=== PATIENT | male | born 1975 | race Caucasian/White ===

== ENCOUNTER 2020-04-08 14:31 | Inpatient (IN) | payer MEDICAID ==
[~2020-04-08] VITALS: Ht 185 cm; Wt 226.7 kg
[~2020-04-08 14:31] MED LIST: OXYC-12 PO
[2020-04-08] MEDS ORDERED: ALPRAZolam 0.5 MG (XANAX) TAB PO PRN (15:15)
[2020-04-08] MEDS ORDERED: MELATONIN 3 MG TABLET PO PRN (15:15)
[2020-04-08] MEDS ORDERED: ANTACID SUSP 30 ML UDC (MYLANTA) PO PRN (15:15)
[2020-04-08] MEDS ORDERED: polyethylene glycoL POWDER 17 GM (MIRALAX) PACK PO PRN (15:15)
[2020-04-08] MEDS ORDERED: ZOLPIDEM 5 MG (AMBIEN) TAB PO PRN (15:15)
[2020-04-08] MEDS ORDERED: ONDANSETRON 4 MG/2 ML (SDV) Z0FRAN IV PRN (15:15)
[2020-04-08] MEDS ORDERED: hydrALAZINE (APRESOLINE) 25 MG TAB PO PRN (15:15)
[2020-04-08] MEDS ORDERED: BISACODYL 10 MG SUPP (DULCOLAX) PR PRN (15:15)
[2020-04-08] MEDS ORDERED: ONDANSETRON 4 MG (ZOFRAN) ORAL DISSOLVE TAB PO PRN (15:15)
[2020-04-08] MEDS ORDERED: ACETAMINOPHEN 325 MG TABLET PO PRN (15:15)
[2020-04-08] MEDS ORDERED: diphenhydrAMINE 25 MG TAB (BENADRYL) PO PRN (15:15)
[2020-04-08 16:15] VITALS: BP 135/69
[2020-04-08] MEDS: inSUlin ASPART (NovoLOG) 1 UNIT/0.01 ML (CHARGE PER UNIT) SC SCH ×2 (17:35→20:43)
[2020-04-08] MEDS: ENOXAPARIN 60 MG/0.6 ML (LOVENOX) SYR SC SCH (17:48)
[2020-04-08 20:21] VITALS: BP 124/74
[2020-04-08 21:19] VITALS: BP 124/74
--- NOTE | 2020-04-08 21:38 | NUR ---
PT STATES HE IS SOB. PT IS DIAPHORETIC. BS 147. PT IS ON 5 LITER NC. O2SAT IS FROM 88 TO 90 PERCENT. VITAL SIGNS OUT SIDE OF OXYGEN ARE STABLE. RT CALLED. PT IS PLACED ON VAPOTHERM. OXYGEN IS NOT 94%. PT STATES HE IS FEELING A LITTLE BETTER. WILL CONTINUE TO MONITOR.
[2020-04-08] MEDS: DOCUSATE SODIUM 100 MG (COLACE) CAP PO SCH (21:52)
[2020-04-08] MEDS: SENNOSIDES 8.6 MG (SENOKOT) TAB PO SCH (21:53)
[2020-04-09] VITALS (21 sets, daily range): BP systolic 121–173; BP diastolic 63–95
--- NOTE | 2020-04-09 02:20 | NUR ---
PT IS RESTING. VITAL SIGNS ARE STABLE.
[2020-04-09] MEDS: RT-ALBUTEROL INHALER HFA (VENTOLIN HFA) 18 GM IH SCH ×6 (02:23→18:44)
[2020-04-09] MEDS: ENOXAPARIN 60 MG/0.6 ML (LOVENOX) SYR SC SCH ×2 (04:15→16:16)
--- NOTE | 2020-04-09 04:15 | NUR ---
PT OXYGEN SAT IS 87 TO 89 PERCENT. OTHER VITAL SIGNS ARE STABLE. PT INFORMED THIS RN WHILE HE WAS IN [facility] HE HAD TO WEAR A BIPAP BECAUSE OF SLEEP APNEA. HE INSTRUCTED TO GET A SLEEP STUDY WHEN HOME. HOWEVER WAS UNABLE TO BECAUSE OF COVID. RT CALLED FOR LOW SAT. RT IN ROOM AND ADJUSTED VAPOTHERM. SETTING FOR VAPOTHERM ARE NOW AT MAX AND PT IS OXYGEN SAT IS 89 TO 90. BIPAP IS DISCUSSED WITH PT. PT AGREES TO WEAR BIPAP. PT PLACED ON BIPAP. PT OXYGEN ON BIPAP IS 93 PERCENT. PT IS NOW RESTING COMFORTABLY. WILL CONTINUE TO MONITOR.
[2020-04-09] MEDS: dexAMETHasone 6 MG TAB (DECADRON) PO SCH (04:54)
[2020-04-09] MEDS: inSUlin ASPART (NovoLOG) 1 UNIT/0.01 ML (CHARGE PER UNIT) SC SCH ×4 (05:34→20:18)
[2020-04-09 06:27] LABS: BASOPHILS % (AUTO) 0 % (0-10); EOSINOPHILS % (AUTO) 0 % (0-10); HEMATOCRIT 35 % (40-54); HEMOGLOBIN 11.1 g/dL (13.3-17.7); LYMPHOCYTES # (AUTO) 0.5 10^3/uL (1.0-4.0); LYMPHOCYTES % (AUTO) 24 % (12-44); MEAN CORPUSCULAR HEMOGLOBIN 27 pg (25-34); MEAN CORPUSCULAR HGB CONC 31 g/dL (32-36); MEAN CORPUSCULAR VOLUME 86 fL (80-99); MEAN PLATELET VOLUME 10.7 fL (9.0-12.2); MONOCYTES # (AUTO) 0.1 10^3/uL (0.0-1.0); MONOCYTES % (AUTO) 4 % (0-12); NEUTROPHILS # (AUTO) 1.4 10^3/uL (1.8-7.8); NEUTROPHILS % (AUTO) 72 % (42-75); PLATELET COUNT 201 10^3/uL (130-400)
[2020-04-09 06:38] LABS: ALBUMIN 3.3 GM/DL (3.2-4.5)
[2020-04-09 06:39] LABS: CHLORIDE 104 MMOL/L (98-107); POTASSIUM 4.6 MMOL/L (3.6-5.0); SODIUM 139 MMOL/L (135-145)
[2020-04-09 06:40] LABS: CALCIUM 8.9 MG/DL (8.5-10.1)
[2020-04-09 06:41] LABS: GLUCOSE 147 MG/DL (70-105); TOTAL PROTEIN 7.8 GM/DL (6.4-8.2)
[2020-04-09 06:42] LABS: CARBON DIOXIDE 26 MMOL/L (21-32)
[2020-04-09 06:43] LABS: BILIRUBIN,TOTAL 0.4 MG/DL (0.1-1.0)
[2020-04-09 06:44] LABS: ALKALINE PHOSPHATASE 106 U/L (40-136)
[2020-04-09 06:45] LABS: CREATININE SERUM 0.72 MG/DL (0.60-1.30); GFR ESTIMATED > 60
[2020-04-09 06:46] LABS: BUN/CREATININE RATIO 15
[2020-04-09 06:48] LABS: ALANINE AMINOTRANSFERASE 76 U/L (0-55)
--- NOTE | 2020-04-09 08:50 | NUR ---
Spoke with Cat RN and gave report for ICU transfer at this time. supervisor cutting and sewing room Donnie has been contacted for assistance getting patient up to ICU. Donnie states he will send up maintenance to disassemble the bariatric bed and take it upstairs.
--- NOTE | 2020-04-09 09:19 | Diagnostic Imaging Report ---
INDICATION: Worsening hypoxia. TIME OF EXAM: 9:05 AM. COMPARISON: Correlation is made with the prior chest from 01/27/2012. FINDINGS: The heart is enlarged. There are some patchy infiltrates in the right upper and right lower lobes, suggestive of pneumonia. The left lung is fairly clear. No effusion or pneumothorax is detected. IMPRESSION: Patchy right-sided pneumonia. Dictated by: Dictated on workstation # [id number]
--- NOTE | 2020-04-09 09:21 | NUR ---
PT TRANSFERRED TO [facility] VIA CHAIR W/ NURSING STAFF/RT AND PERSONAL BELONGINGS. RECEIVED REPORT FROM SHANTI ROCHA. PT PLACED ON MONITORS, VSS ON VAPOTHERM (SEE VS INTERVENTION FOR DETAILS). PT A&O, NO C/O AT THIS TIME. WILL CONT TO MONITOR.
--- NOTE | 2020-04-09 09:33 | NUR ---
Patient transfer up to ICU via bariatric chair with Alma ARRIAGA and Celestina CAMACHO. crop supervisor notified of the need for bariatric bed to be broken down and transferred upstairs to patient now in CU12. Report given to Cat via phone. Patient clothing and belongings transferred with patient to room. Patient tolerated transfer well and is stable at this time.
[2020-04-09] MEDS: SENNOSIDES 8.6 MG (SENOKOT) TAB PO SCH ×2 (09:34→20:18)
[2020-04-09] MEDS: DOCUSATE SODIUM 100 MG (COLACE) CAP PO SCH ×2 (09:34→20:18)
[2020-04-09 10:28] LABS: ABG BASE EXCESS 3.1 MMOL/L (-2.5-2.5); ABG OXYGEN SATURATION 91 % (94-100); ABG PCO2 44 MMHG (35-45); ABG PH 7.41 (7.37-7.43); ABG PO2 58 MMHG (79-93); ABG TCO2 29.2 MMOL/L (21.0-31.0)
[2020-04-09 10:29] LABS: ALLENS TEST POSITIVE; INSPIRED O2 90%; PATIENT TEMP 35.6; VENTILATOR NO
[2020-04-09] MEDS ORDERED: AZITHROMYCIN INJECTION 500 MG in NS (IVPB) 250 ML IV ONE (11:30)
[2020-04-09] MEDS: REMDESIVIR INJ 100 MG in NS (IVPB) 230 ML IV SCH (11:45)
[2020-04-09] MEDS: cefTRIAXone FOR IV USE 1,000 MG in WATER (STERILE) FOR INJECTION 10 ML IV SCH (11:45)
--- NOTE | 2020-04-09 13:38 | Pulmonary Consultation ---
History of Present Illness History of Present Illness Date Seen by Provider: Apr 09, 2020 Time Seen by Provider: 13:34 Date of Admission History of Present Illness 44yo with hx of severe morbid obesity who transferred here from [facility] as direct admit and was found to be COVID positive at [facility]. PT states his symptoms started 2 days ago. He was admitted to 4th floor however continued to have worsening hypoxia and was then transferred to ICU. Allergies and Home Medications Allergies Coded Allergies: No Known Drug Allergies (Unverified , 01/27/12) Home Medications Cholecalciferol (Vitamin D3) 25 Mcg Tablet, 25 MCG PO DAILY, (Reported) Multivitamin 1 Each Tablet, 1 EACH PO DAILY, (Reported) Past Lohjpst-Goowcj-Igvaxn Hx Patient Social History Alcohol Use: Denies Use Recreational Drug Use: No Recent Foreign Travel: No Contact w/Someone Who Travel: No Recent Infectious Disease Expo: No Recent Hopitalizations: No Seasonal Allergies Seasonal Allergies: No Past Medical History Surgeries: No Respiratory: Yes Pneumonia Currently Using CPAP: No Currently Using BIPAP: No Cardiac: No Neurological: No Reproductive Disorders: No Genitourinary: No Gastrointestinal: Yes Abdominal Hernia Musculoskeletal: No Endocrine: No Are Your Blood Sugars Over 250: No HEENT: No Cancer: No Psychosocial: No Blood Disorders: No Sepsis Event Evaluation Height, Weight, BMI Height: '" Weight: lbs. oz. kg; 66.23 BMI Method: Exam Exam Vital Signs Date Time Temp Pulse Resp B/P (MAP) Pulse Ox O2 Delivery O2 Flow Rate FiO2 04/09/20 13:00 72 22 146/74 (98) 96 Vapotherm 40.00 90.00 04/09/20 12:44 70 04/09/20 12:00 75 21 143/85 (104) 89 Vapotherm 40.00 90.00 04/09/20 11:57 36.1 04/09/20 11:00 70 22 156/75 (102) 97 Vapotherm 40.00 90.00 04/09/20 10:29 99 Vapotherm 40.00 100 04/09/20 10:00 82 11 160/95 (116) 88 Vapotherm 40.00 90.00 04/09/20 09:37 Vapotherm 40.00 90.00 04/09/20 09:34 84 04/09/20 09:32 36.1 79 12 121/82 (95) 91 Vapotherm 40.00 70.00 04/09/20 09:30 Vapotherm 40.00 65 04/09/20 08:00 NIV CPAP 24.00 75 04/09/20 08:00 36.1 78 24 144/87 (106) 96 Vapotherm 24.00 70.00 04/09/20 07:59 95 Vapotherm 40.00 100 04/09/20 05:05 70 92 100.00 04/09/20 04:58 68 90 60.00 04/09/20 04:30 88 Vapotherm 40.00 100 04/09/20 04:17 87 Vapotherm 35.00 75 04/09/20 03:31 35.5 73 20 155/89 (111) 93 Vapotherm 24.00 70.00 04/09/20 02:21 97 24.00 75 04/09/20 00:18 36.0 79 20 125/80 (95) 96 Vapotherm 24.00 70.00 04/08/20 21:38 92 Vapotherm 24.00 75 04/08/20 21:19 36.0 84 91 40 04/08/20 20:21 36.0 84 22 124/74 (91) 91 Nasal Cannula 04/08/20 20:00 92 Vapotherm 24.00 75 04/08/20 16:15 36.8 81 16 135/69 91 Nasal Cannula 5.00 04/08/20 16:15 Nasal Cannula 5.00 I & O 04/09/20 07:00 Intake Total 1080 ml Balance 1080 ml Height & Weight Height: '" Weight: lbs. oz. kg; 66.23 BMI Method: Capillary Refill: Less Than 3 Seconds Results Lab Laboratory Tests 04/09/20 06:06 Assessment/Plan Assessment/Plan Acute respiratory failure with ARDS secondasry to COVID -BiPAP PRN and HS COVID-19 pneumonia with severe hypoxia -Remdesivir - CVP -Decadron 6mg daily Anemia -Monitor Severe Morbid obesity HTN -Monitor GI/DVT ppx SILVIA BARCLAY DO Apr 09, 2020 13:38
[2020-04-09] MEDS ORDERED: REMDESIVIR INJ 200 MG in NS (IVPB) 210 ML IV NR (13:45)
[2020-04-09 14:03] LABS: BILIRUBIN,URINE NEGATIVE (NEGATIVE); CLARITY,URINE CLEAR; COLOR,URINE ORANGE; GLUCOSE, URINE (UA) NEGATIVE (NEGATIVE); KETONES,URINE NEGATIVE (NEGATIVE); LEUKOCYTE ESTERASE ,URINE NEGATIVE (NEGATIVE); NITRITE,URINE NEGATIVE (NEGATIVE); PROTEIN,URINE TRACE (NEGATIVE)
[2020-04-09 14:18] LABS: BACTERIA,URINE TRACE /HPF; WBC,URINE 0-2 /HPF
[2020-04-09] MEDS ORDERED: CHOL10002 PO (15:10)
[2020-04-09] MEDS ORDERED: MULT-974 PO (15:10)
--- NOTE | 2020-04-09 15:10 | NUR ---
I SPOKE WITH THE PATIENT'S ON THE PHONE AND WENT THROUGH THE EXTERNAL MED HISTORY TO COMPLETE THIS MED REC. PT'S STATES THAT HE ISN'T TAKING ANY PRESCRIPTION MEDS AT THIS TIME. OTC: VITAMIN D MULTI-VITAMIN
[2020-04-09] MEDS ORDERED: NS IV 500 ML 500 ML ONE (15:49)
--- NOTE | 2020-04-09 16:20 | NUR ---
PT RESTING IN BED W/ EYES CLOSED. PT EASILY AWAKENS TO NAME. O2 SATS IN MID 80S WHILE ON VAPOTHERM 40L 100%. PT PLACED ON BIPAP AT PREVIOUSLY WORN SETTINGS OF 18/12 85%, SATS INCREASED TO MID 90S.
[2020-04-10] VITALS (24 sets, daily range): BP systolic 115–182; BP diastolic 40–107
[2020-04-10 00:50] LABS: BASOPHILS % (AUTO) 0 % (0-10); EOSINOPHILS % (AUTO) 0 % (0-10); HEMATOCRIT 33 % (40-54); HEMOGLOBIN 10.4 g/dL (13.3-17.7); LYMPHOCYTES # (AUTO) 0.6 10^3/uL (1.0-4.0); LYMPHOCYTES % (AUTO) 17 % (12-44); MEAN CORPUSCULAR HEMOGLOBIN 27 pg (25-34); MEAN CORPUSCULAR HGB CONC 31 g/dL (32-36); MEAN CORPUSCULAR VOLUME 87 fL (80-99); MEAN PLATELET VOLUME 10.9 fL (9.0-12.2); MONOCYTES # (AUTO) 0.2 10^3/uL (0.0-1.0); MONOCYTES % (AUTO) 5 % (0-12); NEUTROPHILS # (AUTO) 2.9 10^3/uL (1.8-7.8); NEUTROPHILS % (AUTO) 79 % (42-75); PLATELET COUNT 199 10^3/uL (130-400); WHITE BLOOD COUNT 3.7 10^3/uL (4.3-11.0)
[2020-04-10 00:52] LABS: CHLORIDE 104 MMOL/L (98-107)
[2020-04-10 00:53] LABS: POTASSIUM 4.4 MMOL/L (3.6-5.0); SODIUM 141 MMOL/L (135-145)
[2020-04-10 00:54] LABS: CALCIUM 8.2 MG/DL (8.5-10.1); GLUCOSE 150 MG/DL (70-105)
[2020-04-10 00:56] LABS: CARBON DIOXIDE 27 MMOL/L (21-32)
[2020-04-10 00:58] LABS: CREATININE SERUM 0.72 MG/DL (0.60-1.30); GFR ESTIMATED > 60; PHOSPHORUS 3.3 MG/DL (2.3-4.7)
[2020-04-10 00:59] LABS: BUN/CREATININE RATIO 17
[2020-04-10 01:01] LABS: MAGNESIUM 2.3 MG/DL (1.6-2.4)
[2020-04-10] MEDS: RT-ALBUTEROL INHALER HFA (VENTOLIN HFA) 18 GM IH SCH ×6 (01:58→21:57)
[2020-04-10] MEDS: POTASSIUM CL 10MEQ/50ML IVPB 50 ML IV SCH (03:36)
[2020-04-10] MEDS: KCL 20 MEQ TAB (K-DUR) PO SCH (03:36)
[2020-04-10] MEDS: MAGNESIUM 1 GM/100 ML IVPB 100 ML IV SCH (03:36)
[2020-04-10 04:07] LABS: ABG BASE EXCESS 6.7 MMOL/L (-2.5-2.5); ABG OXYGEN SATURATION 96 % (94-100); ABG PCO2 50 MMHG (35-45); ABG PH 7.41 (7.37-7.43); ABG PO2 81 MMHG (79-93); ABG TCO2 32.9 MMOL/L (21.0-31.0)
[2020-04-10 04:13] LABS: ALLENS TEST YES-POS; INSPIRED O2 75%; PATIENT TEMP 36.6; VENTILATOR NO
--- NOTE | 2020-04-10 05:24 | NUR ---
SPOKE WITH . PASSWORD PROVIDED. UPDATE GIVEN.
[2020-04-10] MEDS: inSUlin ASPART (NovoLOG) 1 UNIT/0.01 ML (CHARGE PER UNIT) SC SCH ×4 (05:28→20:28)
[2020-04-10] MEDS: ENOXAPARIN 60 MG/0.6 ML (LOVENOX) SYR SC SCH ×2 (05:58→17:05)
[2020-04-10] MEDS: dexAMETHasone 6 MG TAB (DECADRON) PO SCH (05:58)
[2020-04-10] MEDS ORDERED: METOCLOPRAMIDE INJ 10 MG/2 ML (REGLAN) ONE (08:14)
[2020-04-10] MEDS: PANTOPRAZOLE 40 MG (PROTONIX) VIAL IV SCH (08:38)
[2020-04-10] MEDS: DOCUSATE SODIUM 100 MG (COLACE) CAP PO SCH ×2 (08:57→20:28)
[2020-04-10] MEDS: SENNOSIDES 8.6 MG (SENOKOT) TAB PO SCH ×2 (08:58→20:28)
[2020-04-10] MEDS ORDERED: AZITHROMYCIN INJECTION 250 MG in NS (IVPB) 250 ML IV SCH (09:00)
[2020-04-10] MEDS: cefTRIAXone FOR IV USE 1,000 MG in WATER (STERILE) FOR INJECTION 10 ML IV SCH (11:42)
[2020-04-10] MEDS: REMDESIVIR INJ 100 MG in NS (IVPB) 230 ML IV SCH (11:43)
[2020-04-10] MEDS ORDERED: morphine INJ 4 MG/ML 1 ML (VIAL/SYRINGE) IVP PRN (11:45)
[2020-04-10] MEDS ORDERED: LORazepam INJ 2 MG/ML (ATIVAN) VIAL IVP PRN (11:45)
[2020-04-10] MEDS ORDERED: LORazepam INJ 2 MG/ML (ATIVAN) VIAL ONE (11:48)
--- NOTE | 2020-04-10 12:02 | NUR ---
DR BARCLAY IN ROOM TO SEE PT NEW ORDERS RECEIVED SEE ORDER HX. ATIVAN 0.5MG IV GIVEN PER NEW VERBAL ORDER.
--- NOTE | 2020-04-10 13:06 | NUR ---
Referral from pt's RN for emotional support: Pt is Holiness and states he "believes in [place]." He expressed feeling isolated and fearful. States he misses his , who is his primary support. The pt welcomed prayer and was tearful. Offered to contact the pt's , Kwadwo. Left voicemail for return contact.
[2020-04-10] MEDS ORDERED: REMDESIVIR INJ 100 MG in NS (IVPB) 230 ML IV SCH (13:45)
--- NOTE | 2020-04-10 15:19 | NUR ---
During care rounds, it was noted avg PO intake 38% x1d, and pt has been refusing meals. Would recommend adding Ensure Enlive to meals TID, for increased kcal intake. Provides 350 kcal and 20 g Pro per serving. Will continue to follow and reassess as pt needs, intake, and status change. Marleny Horner MS RD LD [phone] (cell)
[2020-04-11] VITALS (24 sets, daily range): BP systolic 127–188; BP diastolic 74–104
[2020-04-11] MEDS: RT-ALBUTEROL INHALER HFA (VENTOLIN HFA) 18 GM IH SCH ×5 (02:37→19:07)
[2020-04-11 03:55] LABS: BASOPHILS % (AUTO) 0 % (0-10); EOSINOPHILS % (AUTO) 0 % (0-10); HEMATOCRIT 35 % (40-54); HEMOGLOBIN 10.8 g/dL (13.3-17.7); LYMPHOCYTES # (AUTO) 0.9 10^3/uL (1.0-4.0); LYMPHOCYTES % (AUTO) 14 % (12-44); MEAN CORPUSCULAR HEMOGLOBIN 27 pg (25-34); MEAN CORPUSCULAR HGB CONC 31 g/dL (32-36); MEAN CORPUSCULAR VOLUME 87 fL (80-99); MEAN PLATELET VOLUME 10.8 fL (9.0-12.2); MONOCYTES # (AUTO) 0.4 10^3/uL (0.0-1.0); MONOCYTES % (AUTO) 7 % (0-12); NEUTROPHILS # (AUTO) 4.9 10^3/uL (1.8-7.8); NEUTROPHILS % (AUTO) 79 % (42-75); PLATELET COUNT 235 10^3/uL (130-400); WHITE BLOOD COUNT 6.2 10^3/uL (4.3-11.0)
[2020-04-11 04:12] LABS: CHLORIDE 104 MMOL/L (98-107); POTASSIUM 4.2 MMOL/L (3.6-5.0); SODIUM 142 MMOL/L (135-145)
[2020-04-11 04:13] LABS: CALCIUM 8.2 MG/DL (8.5-10.1)
[2020-04-11 04:14] LABS: GLUCOSE 122 MG/DL (70-105)
[2020-04-11 04:15] LABS: CARBON DIOXIDE 28 MMOL/L (21-32)
[2020-04-11 04:18] LABS: CREATININE SERUM 0.75 MG/DL (0.60-1.30); GFR ESTIMATED > 60; PHOSPHORUS 3.5 MG/DL (2.3-4.7)
[2020-04-11 04:19] LABS: BUN/CREATININE RATIO 20
[2020-04-11 04:21] LABS: MAGNESIUM 2.1 MG/DL (1.6-2.4)
[2020-04-11] MEDS: POTASSIUM CL 10MEQ/50ML IVPB 50 ML IV SCH (04:23)
[2020-04-11] MEDS: inSUlin ASPART (NovoLOG) 1 UNIT/0.01 ML (CHARGE PER UNIT) SC SCH ×4 (04:24→20:05)
[2020-04-11] MEDS: KCL 20 MEQ TAB (K-DUR) PO SCH (04:24)
[2020-04-11] MEDS: MAGNESIUM 1 GM/100 ML IVPB 100 ML IV SCH (04:24)
--- NOTE | 2020-04-11 05:24 | Pulmonary Progress Note ---
Subjective Date Seen by a Provider: Apr 10, 2020 (Late note. ) Time Seen by a Provider: 05:21 Subjective/Events-last exam Pt is still requiring a lot of oxygen. Sepsis Event Evaluation Height, Weight, BMI Height: '" Weight: lbs. oz. kg; 66.23 BMI Method: Exam Exam Vital Signs Date Time Temp Pulse Resp B/P (MAP) Pulse Ox O2 Delivery O2 Flow Rate FiO2 04/11/20 03:00 60 145/77 (99) 98 NIV Bilevel 55.00 04/11/20 02:37 56 96 55.00 04/11/20 02:00 53 141/75 (97) 95 NIV Bilevel 55.00 04/11/20 01:31 NIV Bilevel 55.00 04/11/20 01:00 54 04/11/20 01:00 54 141/77 (98) 95 NIV Bilevel 65.00 04/11/20 00:15 NIV Bilevel 65.00 04/11/20 00:00 61 132/75 (94) 96 Vapotherm 40.00 95.00 04/10/20 23:50 36.0 Vapotherm 40.00 95.00 04/10/20 23:00 60 142/72 (95) 98 Vapotherm 40.00 95.00 04/10/20 22:00 71 8 132/90 (104) 99 Vapotherm 40.00 95.00 04/10/20 21:57 98 Vapotherm 95.00 40 04/10/20 21:00 69 23 138/82 (100) 92 Vapotherm 40.00 95.00 04/10/20 20:00 71 20 166/86 (112) 95 Vapotherm 40.00 95.00 04/10/20 19:40 92 Vapotherm 40.00 95 04/10/20 19:11 99 Vapotherm 95.00 40 04/10/20 19:00 67 12 147/86 (106) 96 Vapotherm 40.00 95.00 04/10/20 19:00 67 04/10/20 18:00 75 12 156/74 (101) 94 Vapotherm 40.00 95.00 04/10/20 17:00 61 7 143/84 (103) 97 Vapotherm 40.00 95.00 04/10/20 16:00 56 14 165/81 (109) 91 Vapotherm 40.00 95.00 04/10/20 15:27 35.7 04/10/20 15:00 65 14 147/88 (107) 92 Vapotherm 40.00 95.00 04/10/20 14:44 97 Vapotherm 95.00 40 04/10/20 14:00 88 24 153/85 (107) 99 Vapotherm 40.00 90.00 04/10/20 13:00 61 24 138/62 (87) 94 Vapotherm 40.00 90.00 04/10/20 12:35 36.7 04/10/20 12:21 75 04/10/20 12:02 36.6 04/10/20 12:00 64 16 126/72 (90) 92 Vapotherm 40.00 90.00 04/10/20 11:00 67 14 146/90 (108) 93 Vapotherm 40.00 90.00 04/10/20 10:35 90 Vapotherm 90.00 40 04/10/20 10:00 58 16 143/79 (100) 95 Vapotherm 40.00 90.00 04/10/20 09:00 55 12 132/78 (96) 95 Vapotherm 40.00 90.00 04/10/20 08:50 93 Vapotherm 40.00 90 04/10/20 08:00 53 12 155/107 (123) 93 Vapotherm 40.00 90.00 04/10/20 07:58 96 Vapotherm 100.00 40 04/10/20 07:18 49 04/10/20 07:00 75 18 182/97 (125) 93 Vapotherm 40.00 90.00 04/10/20 06:07 Vapotherm 40.00 90.00 04/10/20 06:00 76 24 121/75 (90) 91 NIV Bilevel 65.00 04/10/20 05:21 NIV Bilevel 65.00 I & O 04/11/20 07:00 Intake Total 1475 ml Output Total 850 ml Balance 625 ml Height & Weight Height: '" Weight: lbs. oz. kg; 66.23 BMI Method: General Appearance: Anxious, Moderate Distress, Obese HEENT: PERRL/EOMI, Pharynx Normal Neck: Full Range of Motion, Non Tender, Supple Respiratory: Accessory Muscle Use, Crackles, Decreased Breath Sounds Cardiovascular: Regular Rate, Rhythm Capillary Refill: Less Than 3 Seconds Gastrointestinal: normal bowel sounds, non tender, soft Extremity: Normal Capillary Refill Neurologic/Psychiatric: Alert, Oriented x3 Skin: Normal Color, Warm/Dry Lymphatic: No Adenopathy Results Lab Laboratory Tests 04/09/20 06:06 04/10/20 00:30 04/11/20 03:40 Assessment/Plan Assessment/Plan Acute respiratory failure with ARDS Pa02/Fi02 108 secondasry to COVID -BiPAP PRN and HS COVID-19 with severe hypoxia -Remdesivir -S/P CVP -Decadron 6mg daily Anemia -Monitor Anxiety/agitation -Start Ativan 0.5mg IV PRN Severe Morbid obesity GI/DVT ppx SILVIA BARCLAY DO Apr 11, 2020 05:24
--- NOTE | 2020-04-11 05:32 | Pulmonary Progress Note ---
Subjective Time Seen by a Provider: 05:29 Sepsis Event Evaluation Height, Weight, BMI Height: '" Weight: lbs. oz. kg; 66.23 BMI Method: Exam Exam Vital Signs Date Time Temp Pulse Resp B/P (MAP) Pulse Ox O2 Delivery O2 Flow Rate FiO2 04/11/20 03:00 60 145/77 (99) 98 NIV Bilevel 55.00 04/11/20 02:37 56 96 55.00 04/11/20 02:00 53 141/75 (97) 95 NIV Bilevel 55.00 04/11/20 01:31 NIV Bilevel 55.00 04/11/20 01:00 54 04/11/20 01:00 54 141/77 (98) 95 NIV Bilevel 65.00 04/11/20 00:15 NIV Bilevel 65.00 04/11/20 00:00 61 132/75 (94) 96 Vapotherm 40.00 95.00 04/10/20 23:50 36.0 Vapotherm 40.00 95.00 04/10/20 23:00 60 142/72 (95) 98 Vapotherm 40.00 95.00 04/10/20 22:00 71 8 132/90 (104) 99 Vapotherm 40.00 95.00 04/10/20 21:57 98 Vapotherm 95.00 40 04/10/20 21:00 69 23 138/82 (100) 92 Vapotherm 40.00 95.00 04/10/20 20:00 71 20 166/86 (112) 95 Vapotherm 40.00 95.00 04/10/20 19:40 92 Vapotherm 40.00 95 04/10/20 19:11 99 Vapotherm 95.00 40 04/10/20 19:00 67 12 147/86 (106) 96 Vapotherm 40.00 95.00 04/10/20 19:00 67 04/10/20 18:00 75 12 156/74 (101) 94 Vapotherm 40.00 95.00 04/10/20 17:00 61 7 143/84 (103) 97 Vapotherm 40.00 95.00 04/10/20 16:00 56 14 165/81 (109) 91 Vapotherm 40.00 95.00 04/10/20 15:27 35.7 04/10/20 15:00 65 14 147/88 (107) 92 Vapotherm 40.00 95.00 04/10/20 14:44 97 Vapotherm 95.00 40 04/10/20 14:00 88 24 153/85 (107) 99 Vapotherm 40.00 90.00 04/10/20 13:00 61 24 138/62 (87) 94 Vapotherm 40.00 90.00 04/10/20 12:35 36.7 04/10/20 12:21 75 04/10/20 12:02 36.6 04/10/20 12:00 64 16 126/72 (90) 92 Vapotherm 40.00 90.00 04/10/20 11:00 67 14 146/90 (108) 93 Vapotherm 40.00 90.00 04/10/20 10:35 90 Vapotherm 90.00 40 04/10/20 10:00 58 16 143/79 (100) 95 Vapotherm 40.00 90.00 04/10/20 09:00 55 12 132/78 (96) 95 Vapotherm 40.00 90.00 04/10/20 08:50 93 Vapotherm 40.00 90 04/10/20 08:00 53 12 155/107 (123) 93 Vapotherm 40.00 90.00 04/10/20 07:58 96 Vapotherm 100.00 40 04/10/20 07:18 49 04/10/20 07:00 75 18 182/97 (125) 93 Vapotherm 40.00 90.00 04/10/20 06:07 Vapotherm 40.00 90.00 04/10/20 06:00 76 24 121/75 (90) 91 NIV Bilevel 65.00 I & O 04/11/20 07:00 Intake Total 1475 ml Output Total 850 ml Balance 625 ml Height & Weight Height: '" Weight: lbs. oz. kg; 66.23 BMI Method: General Appearance: Anxious, Moderate Distress, Obese HEENT: PERRL/EOMI, Pharynx Normal Neck: Full Range of Motion, Non Tender, Supple Respiratory: Accessory Muscle Use, Crackles, Decreased Breath Sounds Cardiovascular: Regular Rate, Rhythm Capillary Refill: Less Than 3 Seconds Gastrointestinal: normal bowel sounds, non tender, soft Extremity: Normal Capillary Refill Neurologic/Psychiatric: Alert, Oriented x3 Skin: Normal Color, Warm/Dry Lymphatic: No Adenopathy Results Lab Laboratory Tests 04/09/20 06:06 04/10/20 00:30 04/11/20 03:40 Assessment/Plan Assessment/Plan Acute respiratory failure with ARDS Pa02/Fi02 108 secondasry to COVID -BiPAP PRN and HS COVID-19 with severe hypoxia -D/C ABx -- PCT is negative x 2 and no leukocytosis -Remdesivir -S/P CVP -Decadron 6mg daily Anemia -Monitor Anxiety/agitation -Start Ativan 0.5mg IV PRN Severe Morbid obesity GI/DVT ppx SILVIA BARCLAY DO Apr 11, 2020 05:32
[2020-04-11] MEDS: ENOXAPARIN 60 MG/0.6 ML (LOVENOX) SYR SC SCH ×2 (05:39→17:10)
[2020-04-11] MEDS: PANTOPRAZOLE 40 MG (PROTONIX) VIAL IV SCH (09:09)
[2020-04-11] MEDS: dexAMETHasone 6 MG TAB (DECADRON) PO SCH (09:09)
[2020-04-11] MEDS: lisINopril 20 MG (PRINIVIL) TABLET PO SCH (09:09)
[2020-04-11] MEDS: DOCUSATE SODIUM 100 MG (COLACE) CAP PO SCH ×2 (09:10→20:05)
[2020-04-11] MEDS: SENNOSIDES 8.6 MG (SENOKOT) TAB PO SCH ×2 (09:10→20:05)
[2020-04-11] MEDS: REMDESIVIR INJ 100 MG in NS (IVPB) 230 ML IV SCH (11:50)
--- NOTE | 2020-04-11 16:08 | NUR ---
Facilitated FaceTime between the pt and his , teenage son, and child. The pt states he does not recall any of his history or medical information and requested follow up.
[2020-04-12] VITALS (18 sets, daily range): BP systolic 125–179; BP diastolic 67–117
[2020-04-12] MEDS: RT-ALBUTEROL INHALER HFA (VENTOLIN HFA) 18 GM IH SCH ×7 (01:58→23:11)
[2020-04-12 02:50] LABS: BASOPHILS % (AUTO) 0 % (0-10); EOSINOPHILS % (AUTO) 0 % (0-10); HEMATOCRIT 33 % (40-54); LYMPHOCYTES # (AUTO) 0.8 10^3/uL (1.0-4.0); LYMPHOCYTES % (AUTO) 21 % (12-44); MEAN CORPUSCULAR HEMOGLOBIN 27 pg (25-34); MEAN CORPUSCULAR HGB CONC 31 g/dL (32-36); MEAN CORPUSCULAR VOLUME 87 fL (80-99); MEAN PLATELET VOLUME 11.1 fL (9.0-12.2); MONOCYTES # (AUTO) 0.3 10^3/uL (0.0-1.0); MONOCYTES % (AUTO) 9 % (0-12); NEUTROPHILS # (AUTO) 2.5 10^3/uL (1.8-7.8); NEUTROPHILS % (AUTO) 69 % (42-75); PLATELET COUNT 159 10^3/uL (130-400); WHITE BLOOD COUNT 3.6 10^3/uL (4.3-11.0)
[2020-04-12 03:18] LABS: ABG BASE EXCESS 6.3 MMOL/L (-2.5-2.5); ABG OXYGEN SATURATION 92 % (94-100); ABG PCO2 47 MMHG (35-45); ABG PH 7.43 (7.37-7.43); ABG PO2 64 MMHG (79-93); ABG TCO2 32.4 MMOL/L (21.0-31.0)
[2020-04-12 03:20] LABS: BUN/CREATININE RATIO 22; CALCIUM 8.2 MG/DL (8.5-10.1); CARBON DIOXIDE 27 MMOL/L (21-32); CHLORIDE 103 MMOL/L (98-107); CREATININE SERUM 0.73 MG/DL (0.60-1.30); GFR ESTIMATED > 60; GLUCOSE 123 MG/DL (70-105); PHOSPHORUS 3.5 MG/DL (2.3-4.7); SODIUM 140 MMOL/L (135-145)
[2020-04-12 03:28] LABS: VENTILATOR NO
[2020-04-12 03:29] LABS: ALLENS TEST POS; PATIENT TEMP 35.9
[2020-04-12] MEDS: POTASSIUM CL 10MEQ/50ML IVPB 50 ML IV SCH (03:44)
[2020-04-12] MEDS: MAGNESIUM 1 GM/100 ML IVPB 100 ML IV SCH (03:44)
[2020-04-12] MEDS: inSUlin ASPART (NovoLOG) 1 UNIT/0.01 ML (CHARGE PER UNIT) SC SCH (03:44)
[2020-04-12] MEDS: KCL 20 MEQ TAB (K-DUR) PO SCH (03:44)
--- NOTE | 2020-04-12 04:28 | Pulmonary Progress Note ---
Subjective Time Seen by a Provider: 04:26 Sepsis Event Evaluation Height, Weight, BMI Height: '" Weight: lbs. oz. kg; 66.23 BMI Method: Exam Exam Vital Signs Date Time Temp Pulse Resp B/P (MAP) Pulse Ox O2 Delivery O2 Flow Rate FiO2 04/12/20 03:00 52 19 125/70 (88) 97 NIV Bilevel 55.00 04/12/20 02:46 35.9 04/12/20 02:00 53 21 130/67 (88) 93 NIV Bilevel 55.00 04/12/20 01:58 53 92 55.00 04/12/20 01:00 65 15 174/94 (120) 99 NIV Bilevel 55.00 04/12/20 01:00 60 04/12/20 00:01 93 Vapotherm 70.00 40 04/12/20 00:00 66 19 162/103 (122) 98 NIV Bilevel 55.00 04/12/20 00:00 36.4 04/11/20 23:00 44 18 143/82 (102) 97 NIV Bilevel 55.00 04/11/20 22:00 52 22 154/78 (103) 96 NIV Bilevel 55.00 04/11/20 21:00 51 21 139/74 (95) 95 NIV Bilevel 55.00 04/11/20 20:06 NIV Bilevel 55.00 04/11/20 20:00 77 16 144/86 (105) 98 Vapotherm 40.00 70.00 04/11/20 20:00 95 Vapotherm 40.00 75 04/11/20 19:52 36.8 04/11/20 19:08 93 Vapotherm 70.00 40 04/11/20 19:00 77 17 155/91 (112) 93 Vapotherm 40.00 70.00 04/11/20 19:00 81 04/11/20 18:00 73 18 159/84 (109) 93 Vapotherm 40.00 70.00 04/11/20 17:00 128 33 150/94 (112) 91 Vapotherm 40.00 70.00 04/11/20 16:00 67 5 151/82 (105) 94 Vapotherm 40.00 70.00 04/11/20 15:00 75 19 142/77 (98) 93 Vapotherm 40.00 70.00 04/11/20 14:46 93 Vapotherm 70.00 40 04/11/20 14:00 62 9 188/104 (132) 99 Vapotherm 40.00 70.00 04/11/20 13:00 72 28 136/78 (97) 93 Vapotherm 40.00 70.00 04/11/20 12:32 70 04/11/20 12:00 61 151/94 (113) 91 Vapotherm 40.00 70.00 04/11/20 11:00 58 132/75 (94) 95 Vapotherm 40.00 70.00 04/11/20 10:09 97 Vapotherm 70.00 40 04/11/20 10:00 64 141/82 (101) 95 Vapotherm 40.00 70.00 04/11/20 09:00 57 127/80 (96) 98 Vapotherm 40.00 85.00 04/11/20 08:55 96 Vapotherm 40.00 85 04/11/20 08:00 68 140/89 (106) 95 Vapotherm 40.00 85.00 04/11/20 07:00 66 142/80 (100) 98 Vapotherm 40.00 85.00 04/11/20 06:45 81 96 Vapotherm 40.00 85.00 04/11/20 06:39 97 Vapotherm 85.00 40 04/11/20 06:00 65 139/81 (100) 98 Vapotherm 40.00 95.00 04/11/20 05:43 Vapotherm 40.00 95.00 04/11/20 05:00 54 138/84 (102) 95 NIV Bilevel 55.00 I & O 04/12/20 07:00 Intake Total 1120 ml Output Total 2150 ml Balance -1030 ml Height & Weight Height: '" Weight: lbs. oz. kg; 66.23 BMI Method: General Appearance: Anxious, Moderate Distress, Obese HEENT: PERRL/EOMI, Pharynx Normal Neck: Full Range of Motion, Non Tender, Supple Respiratory: Accessory Muscle Use, Crackles, Decreased Breath Sounds Cardiovascular: Regular Rate, Rhythm Capillary Refill: Less Than 3 Seconds Gastrointestinal: normal bowel sounds, non tender, soft Extremity: Normal Capillary Refill Neurologic/Psychiatric: Alert, Oriented x3 Skin: Normal Color, Warm/Dry Lymphatic: No Adenopathy Results Lab Laboratory Tests 04/11/20 03:40 04/12/20 02:30 Assessment/Plan Assessment/Plan Acute respiratory failure with ARDS Pa02/Fi02 108 secondasry to COVID -BiPAP PRN and HS currently requiring 55% COVID-19 with severe hypoxia -D/C ABx -- PCT is negative x 2 and no leukocytosis -Remdesivir -S/P CVP -Decadron 6mg daily -Awake proning Anemia -Monitor Anxiety/agitation -Start Ativan 0.5mg IV PRN Severe Morbid obesity GI/DVT ppx -Lovenox -Protonix SILVIA BARCLAY DO Apr 12, 2020 04:28
[2020-04-12] MEDS: ENOXAPARIN 60 MG/0.6 ML (LOVENOX) SYR SC SCH ×2 (05:35→17:06)
[2020-04-12] MEDS: PANTOPRAZOLE 40 MG (PROTONIX) VIAL IV SCH (08:06)
[2020-04-12] MEDS: dexAMETHasone 6 MG TAB (DECADRON) PO SCH (08:06)
[2020-04-12] MEDS: lisINopril 20 MG (PRINIVIL) TABLET PO SCH (08:07)
[2020-04-12] MEDS: SENNOSIDES 8.6 MG (SENOKOT) TAB PO SCH ×2 (08:07→23:54)
[2020-04-12] MEDS: DOCUSATE SODIUM 100 MG (COLACE) CAP PO SCH ×2 (08:07→23:54)
[2020-04-12] MEDS: REMDESIVIR INJ 100 MG in NS (IVPB) 230 ML IV SCH (11:48)
[2020-04-13] MEDS: RT-ALBUTEROL INHALER HFA (VENTOLIN HFA) 18 GM IH SCH ×7 (02:54→22:57)
[2020-04-13] MEDS: ENOXAPARIN 60 MG/0.6 ML (LOVENOX) SYR SC SCH ×2 (06:08→16:57)
[2020-04-13] MEDS: KCL 20 MEQ TAB (K-DUR) PO SCH (06:27)
[2020-04-13] MEDS: MAGNESIUM 1 GM/100 ML IVPB 100 ML IV SCH (06:27)
[2020-04-13] MEDS: POTASSIUM CL 10MEQ/50ML IVPB 50 ML IV SCH (06:27)
[2020-04-13 06:29] LABS: BASOPHILS % (AUTO) 0 % (0-10); EOSINOPHILS % (AUTO) 0 % (0-10); HEMATOCRIT 34 % (40-54); HEMOGLOBIN 10.5 g/dL (13.3-17.7); LYMPHOCYTES # (AUTO) 1.3 10^3/uL (1.0-4.0); LYMPHOCYTES % (AUTO) 29 % (12-44); MEAN CORPUSCULAR HEMOGLOBIN 27 pg (25-34); MEAN CORPUSCULAR HGB CONC 31 g/dL (32-36); MEAN CORPUSCULAR VOLUME 87 fL (80-99); MEAN PLATELET VOLUME 10.8 fL (9.0-12.2); MONOCYTES # (AUTO) 0.4 10^3/uL (0.0-1.0); MONOCYTES % (AUTO) 8 % (0-12); NEUTROPHILS # (AUTO) 2.8 10^3/uL (1.8-7.8); NEUTROPHILS % (AUTO) 62 % (42-75); PLATELET COUNT 189 10^3/uL (130-400); WHITE BLOOD COUNT 4.5 10^3/uL (4.3-11.0)
[2020-04-13 06:42] LABS: CHLORIDE 103 MMOL/L (98-107); SODIUM 140 MMOL/L (135-145)
[2020-04-13 06:43] LABS: CALCIUM 8.1 MG/DL (8.5-10.1)
[2020-04-13 06:44] LABS: GLUCOSE 108 MG/DL (70-105)
[2020-04-13 06:46] LABS: CARBON DIOXIDE 27 MMOL/L (21-32)
[2020-04-13 06:48] LABS: CREATININE SERUM 0.72 MG/DL (0.60-1.30); GFR ESTIMATED > 60; PHOSPHORUS 3.7 MG/DL (2.3-4.7)
[2020-04-13 06:49] LABS: BUN/CREATININE RATIO 25
[2020-04-13 06:50] LABS: MAGNESIUM 2.1 MG/DL (1.6-2.4)
[2020-04-13 08:06] VITALS: BP 152/94
[2020-04-13] MEDS: dexAMETHasone 6 MG TAB (DECADRON) PO SCH (08:07)
[2020-04-13] MEDS: PANTOPRAZOLE 40 MG (PROTONIX) VIAL IV SCH (08:07)
[2020-04-13] MEDS: lisINopril 20 MG (PRINIVIL) TABLET PO SCH (08:07)
[2020-04-13] MEDS: SENNOSIDES 8.6 MG (SENOKOT) TAB PO SCH ×2 (09:01→19:21)
[2020-04-13] MEDS: DOCUSATE SODIUM 100 MG (COLACE) CAP PO SCH ×2 (09:01→19:21)
--- NOTE | 2020-04-13 11:23 | Physical Therapy Evaluation ---
PT Evaluation-General Medical Diagnosis Admission Date Apr 08, 2020 at 16:20 Medical Diagnosis: Covid 19 Onset Date: Apr 06, 2020 Therapy Diagnosis Therapy Diagnosis: debility Precautions Precautions/Isolations: Airborne Isolation, Fall Prevention Referral Physician: Mahad Reason for Referral: Evaluation/Treatment Medical History Pertinent Medical History: HTN Additional Medical History morbid obesity Current History TFR from [facility] secondary to severe hypoxia from Covid Reviewed History: Yes Social History Home: Single Level Current Living Status: Spouse Prior Prior Level of Function SCALE: Activities may be completed with or without assistive devices. 8-Lbtgdaxift-vtbnyyw completes the activity by him/herself with no assistance fr om a helper. 5-Set-up or Clean-up Assistance-helper sets up or cleans up; patient completes activity. [place] assists only prior to or following the activity. 4-Supervision or Touching Assistance-helper provides verbal cues and/or touching/steadying and/or contact guard assistance as patient completes activity. Assistance may be provided throughout the activity or intermittently. 3-Partial/Moderate Assistance-helper does LESS THAN HALF the effort. [place] lifts, holds or supports trunk or limbs, but provides less than half the effort. 2-Substantial/Maximal Assistance-helper does MORE THAN HALF the effort. [place] lifts or holds trunk or limbs and provides more than half the effort. 1-Evvfgrphf-unheao does ALL the effort. Patient does none of the effort to complete the activity. Or, the assistance of 2 or more helpers is required for the patient to complete the activity. If activity was not attempted, code reason: 7-Patient Refused. 9-Not Applicable-not attempted and the patient did not perform the activity before the current illness, exacerbation or injury. 10-Not Attempted due to Environmental Limitations-(lack of equipment, weather restraints, etc.). 88-Not Attempted due to Medical Conditions or Safety Concerns. Bed Mobility: 6 Transfers (B,C,W/C): 6 Gait: 6 Stairs: 6 Indoor Mobility (Ambulation): Independent Stairs: Independent Prior Devices Use: None PT Evaluation-Current Subjective Patient agrees to PT. Currently on 6L O2 HF Objective Patient Orientation: Normal For Age Attachments: Oxygen (6L HF), Bullard Catheter ROM/Strength ROM Lower Extremities bilateral LE WFL Strength Lower Extremities 5/5 grossly bilateral LE Integumentary/Posture Integumentary refer to nursing notes Bladder Incontinence: Bullard Cath Posture WFL Neuromuscular (Tone, Coordination, Reflexes) grossly intact Sensory Vision: Functional Hearing: Functional Transfers Sit to Lying (QC): 6 Lying to Sitting/Side of Bed(Q: 6 Sit to Stand (QC): 6 Chair/Avo-oh-Ncuty Xfer(QC): 6 Gait Does the Patient Walk?: Yes Mode of Locomotion: Walk Anticipated Mode of Locomotion: Walk Walk 10 feet (QC): 6 (x 5 sets) Gait Assistive Device: None Comments/Gait Description safe and functional with no deviation Balance Sitting Static: Normal Sitting Dynamic: Normal Standing Static: Normal Standing Dynamic: Normal Assessment/Needs 44 y.o. male, is currently at independent PLOF with all gross motor skills and SAO2 is 99% on 6L O2 HF with activity. No skilled PT indicated. Patient instructed to perform ambulation and standing marching PRN to improve lung function. Rehab Potential: Fair PT Plan Treatment/Plan Treatment Plan: Discontinue PT, goals met Treatment Duration: Apr 13, 2020 Frequency: 1 time per week Estimated Hrs Per Day: .25 hour per day Patient and/or Family Agrees t: Yes Discharge Recommendations Therapy Discharge Recommendati: Home & Family Time/GCodes Time In: 1055 Time Out: 1110 Total Billed Treatment Time: 15 Total Billed Treatment 1 visit EVMod 15 min JANAE CERVANTES PT Apr 13, 2020 11:23
--- NOTE | 2020-04-13 11:30 | Occ Therapy Progress Note ---
Therapy Progress Note Pt in room with PT. Pt agrees to OT eval/ treat. Pt is IND in room per pt. Pt's MMT/ ROM WFL (09/26). Pt agrees able to complete shoes (demonstrates), states ability to complete pants (though is educated on breath support due to COVID status and ensuring tasking breath throughout, educated on use of marble installer supervisor to don pants when return home until breath support increases), pt denies further needs. No need for skilled occupational therapy tx at this time. 1, visit (10 minutes) SHELLEY ASCENCIO OTR Apr 13, 2020 11:30
--- NOTE | 2020-04-13 11:51 | Progress Note - Hospitalist ---
Subjective HPI/CC On Admission Date Seen by Provider: Apr 13, 2020 Time Seen by Provider: 10:30 Subjective/Events-last exam Patient is doing well Off Vapotherm now and on hiflo O2 PT worked with him and he is doing well and at his baseline No pain reported BM++ Hospital Course: Bryce Salazar is a 44 year old male with morbid obesity who was a direct admit from [facility] who's positive for COIVD-19. His symptoms onset 11. He was initially admitted to the 4th medical/surgical floor at [facility], but was transferred to ICU for worsening hypoxia. His hospital course has been complicated by acute respiratory failure secondary to COVID-19 and COVID-19 PNA with severe hypoxia. Chest X-ray showed a patchy right sided pneumonia. He was initially placed on vapotherm and as of today has been transitioned to HFNC at 6 L. He received convalescent plasma therayp, decadron, remdesivir, and the IV abx have been dis continued now. He has been doing awake proning and has started working with PT and OT today. Possible candidate for inpatient rehab here at [facility]. Review of Systems General: Fatigue, Malaise Pulmonary: Dyspnea Neurological: Weakness Objective Exam Vital Signs Vital Signs Date Time Temp Pulse Resp B/P (MAP) Pulse Ox O2 Delivery O2 Flow Rate FiO2 04/14/20 02:00 42 20 95 25.00 04/14/20 00:06 NIV Bilevel 04/13/20 23:44 119/99 (106) 04/13/20 19:15 36.4 04/13/20 08:45 30 Capillary Refill : Less Than 3 Seconds General Appearance: No Apparent Distress, WD/WN, Chronically ill, Obese Respiratory: Chest Non Tender, Lungs Clear, No Accessory Muscle Use, No Respiratory Distress, Decreased Breath Sounds Cardiovascular: Regular Rate, Rhythm, No Edema, No Gallop, No JVD, No Murmur, Normal Peripheral Pulses Neurologic/Psychiatric: Alert, Oriented x3, No Motor/Sensory Deficits, Normal Mood/Affect Skin: Normal Color, Warm/Dry Results/Procedures Lab Laboratory Tests 04/13/20 06:15 04/14/20 03:55 Patient resulted labs reviewed. Assessment/Plan Assessment and Plan Assess & Plan/Chief Complaint Assessment: COVID-19 PNA OHS Plan: PT OT if needed Wean down O2 Assessment per DEO Chandler: Neurologic: Alert and Oriented No sedation Continue PRN lorazepam for anxiety Cardiovascular: BP and HR stable No pressors or inotropes required Respiratory: Acute respiratory failure with ARDS secondary to COVID 19 COVID PNA with severe hypoxia Vapotherm- transition to NC when feasible Continue scheduled albuterol nebs Continue decadron as ordered Encourage cough and deep breath/IS Prone during wakeful hours Received convalescent plasma therapy Gastrointestinal: Protonix for stress ulcer prophylaxis Encourage appropriate po intake given morbid obesity Monitor for GI bleeding Renal/Genitourinary Bullard present Continue close monitoring kidney function Hematologic: lovenox for DVT prophylaxis Monitor for coagulopathy Trend H and H given the anemia Endocrine: Monitor glucoses daily Tight glucose control given decadron administration Infectious Disease: No abx indicated at present time, course completed Reassess daily need Diagnosis/Problems Diagnosis/Problems (1) Acute respiratory failure due to COVID-19 Clinical Quality Measures DVT/VTE Risk/Contraindication: Risk Factor Score Per Nursin RFS Level Per Nursing on Admit: 3=High ALINA ALEJANDRO DO Apr 13, 2020 11:50
[2020-04-13 11:58] VITALS: BP 135/79
--- NOTE | 2020-04-13 12:52 | Progress Note ---
HARMEET MENDOZA MED STUDENT 04/13/20 1252: Progress Note Assessment: Neurologic: Alert and Oriented No sedation Continue PRN lorazepam for anxiety Cardiovascular: BP and HR stable No pressors or inotropes required Respiratory: Acute respiratory failure with ARDS secondary to COVID 19 COVID PNA with severe hypoxia Vapotherm- transition to NC when feasible Continue scheduled albuterol nebs Continue decadron as ordered Encourage cough and deep breath/IS Prone during wakeful hours Received convalescent plasma therapy Gastrointestinal: Protonix for stress ulcer prophylaxis Encourage appropriate po intake given morbid obesity Monitor for GI bleeding Renal/Genitourinary Bullard present Continue close monitoring kidney function Hematologic: lovenox for DVT prophylaxis Monitor for coagulopathy Trend H and H given the anemia Endocrine: Monitor glucoses daily Tight glucose control given decadron administration Infectious Disease: No abx indicated at present time, course completed Reassess daily need Hospital Course: Bryce Salazar is a 44 year old male with morbid obesity who was a direct admit from [facility] who's positive for COIVD-19. His symptoms onset 04-07. He was initially admitted to the 4th medical/surgical floor at [facility], but was transferred to ICU for worsening hypoxia. His hospital course has been complicated by acute respiratory failure secondary to COVID-19 and COVID-19 PNA with severe hypoxia. Chest X-ray showed a patchy right sided pneumonia. He was initially placed on vapotherm and as of today has been transitioned to HFNC at 6 L. He received convalescent plasma therayp, decadron, remdesivir, and the IV abx have been discontinued now. He has been doing awake proning and has started working with PT and OT today. Possible candidate for inpatient rehab here at [facility]. NORA ALEJANDRO DO 04/14/20 0550: Supervisory-Addendum Brief Verification & Attestation Participated in pt care: history, MDM, physical Personally performed: exam, history, MDM, supervision of care Care discussed with: Medical Student Procedures: n/a Results interpretation: Verified all documentation Verification and Attestation of Medical Student E/M Service A medical student performed and documented this service in my presence. I reviewed and verified all information documented by the medical student and made modifications to such information, when appropriate. I personally performed the physical exam and medical decision making. Nora Alejandro, Apr 14, 2020,05:50 HARMEET MENDOZA MED STUDENT Apr 13, 2020 12:52 NORA ALEJANDRO DO Apr 14, 2020 05:50
--- NOTE | 2020-04-13 13:11 | NUR ---
IRF Evaluation Determination: Denied Findings: Chart review complete and it appears patient is independent and at PLOF; therefore, patient does not require inpatient rehabilitation services, at this time. Dr. Tobin notified. Thank you for this referral.
[2020-04-13 15:38] VITALS: BP 138/84
[2020-04-13 20:00] VITALS: BP 117/74
[2020-04-13 20:43] VITALS: BP 117/74
[2020-04-13 23:44] VITALS: BP 119/99
[2020-04-14] MEDS: RT-ALBUTEROL INHALER HFA (VENTOLIN HFA) 18 GM IH SCH ×6 (01:59→22:20)
[2020-04-14 04:25] LABS: BASOPHILS % (AUTO) 0 % (0-10); EOSINOPHILS % (AUTO) 0 % (0-10); HEMATOCRIT 36 % (40-54); HEMOGLOBIN 11.2 g/dL (13.3-17.7); LYMPHOCYTES # (AUTO) 1.2 10^3/uL (1.0-4.0); LYMPHOCYTES % (AUTO) 20 % (12-44); MEAN CORPUSCULAR HEMOGLOBIN 27 pg (25-34); MEAN CORPUSCULAR HGB CONC 31 g/dL (32-36); MEAN CORPUSCULAR VOLUME 86 fL (80-99); MONOCYTES # (AUTO) 0.3 10^3/uL (0.0-1.0); MONOCYTES % (AUTO) 6 % (0-12); NEUTROPHILS # (AUTO) 4.3 10^3/uL (1.8-7.8); NEUTROPHILS % (AUTO) 73 % (42-75); PLATELET COUNT 199 10^3/uL (130-400); WHITE BLOOD COUNT 5.9 10^3/uL (4.3-11.0)
[2020-04-14 04:40] LABS: CHLORIDE 104 MMOL/L (98-107); SODIUM 141 MMOL/L (135-145)
[2020-04-14 04:41] LABS: CALCIUM 8.3 MG/DL (8.5-10.1)
[2020-04-14 04:42] LABS: GLUCOSE 118 MG/DL (70-105)
[2020-04-14 04:43] LABS: CARBON DIOXIDE 26 MMOL/L (21-32)
[2020-04-14 04:45] LABS: PHOSPHORUS 3.9 MG/DL (2.3-4.7)
[2020-04-14 04:46] LABS: GFR ESTIMATED > 60
[2020-04-14 04:47] LABS: BUN/CREATININE RATIO 21
[2020-04-14 04:48] LABS: MAGNESIUM 2.1 MG/DL (1.6-2.4)
[2020-04-14] MEDS: POTASSIUM CL 10MEQ/50ML IVPB 50 ML IV SCH (05:11)
[2020-04-14] MEDS: MAGNESIUM 1 GM/100 ML IVPB 100 ML IV SCH (05:11)
[2020-04-14] MEDS: KCL 20 MEQ TAB (K-DUR) PO SCH (05:11)
[2020-04-14] MEDS: ENOXAPARIN 60 MG/0.6 ML (LOVENOX) SYR SC SCH ×2 (05:59→17:04)
--- NOTE | 2020-04-14 06:53 | Progress Note - Hospitalist ---
Subjective HPI/CC On Admission Date Seen by Provider: Apr 14, 2020 Time Seen by Provider: 11:00 Subjective/Events-last exam Patient much improved Moving to 4h floor O2 weaning biPAP working very well for him and he wants it intermediate No pain reported BM+ Review of Systems General: Fatigue, Malaise Pulmonary: Dyspnea Objective Exam Vital Signs Vital Signs Date Time Temp Pulse Resp B/P (MAP) Pulse Ox O2 Delivery O2 Flow Rate FiO2 04/14/20 16:18 36.3 77 20 112/66 (81) 95 Room Air 04/14/20 12:09 2.00 04/13/20 08:45 30 Capillary Refill : Less Than 3 Seconds General Appearance: No Apparent Distress, WD/WN, Chronically ill, Obese Respiratory: Chest Non Tender, Lungs Clear, Normal Breath Sounds, No Accessory Muscle Use, No Respiratory Distress, Decreased Breath Sounds Cardiovascular: Regular Rate, Rhythm, No Edema, No Gallop, No JVD, No Murmur, Normal Peripheral Pulses Neurologic/Psychiatric: Alert, Oriented x3, No Motor/Sensory Deficits, Normal Mood/Affect Results/Procedures Lab Laboratory Tests 04/14/20 03:55 Patient resulted labs reviewed. Assessment/Plan Assessment and Plan Assess & Plan/Chief Complaint Assessment: COVID-19 PNA OHS Plan: PT OT if needed Wean down O2 04/14/20: Move to 4th floor DC catheter Assessment per TANYA ChandlerII: Neurologic: Alert and Oriented No sedation Continue PRN lorazepam for anxiety Cardiovascular: BP and HR stable No pressors or inotropes required Respiratory: Acute respiratory failure with ARDS secondary to COVID 19 COVID PNA with severe hypoxia Vapotherm- transition to MD when feasible Continue scheduled albuterol nebs Continue decadron as ordered Encourage cough and deep breath/IS Prone during wakeful hours Received convalescent plasma therapy Gastrointestinal: Protonix for stress ulcer prophylaxis Encourage appropriate po intake given morbid obesity Monitor for GI bleeding Renal/Genitourinary Bullard present Continue close monitoring kidney function Hematologic: lovenox for DVT prophylaxis Monitor for coagulopathy Trend H and H given the anemia Endocrine: Monitor glucoses daily Tight glucose control given decadron administration Infectious Disease: No abx indicated at present time, course completed Reassess daily need Diagnosis/Problems Diagnosis/Problems (1) Acute respiratory failure due to COVID-19 Clinical Quality Measures DVT/VTE Risk/Contraindication: Risk Factor Score Per Nursin RFS Level Per Nursing on Admit: 3=High ALINA ALEJANDRO DO Apr 14, 2020 06:53
[2020-04-14] MEDS: lisINopril 20 MG (PRINIVIL) TABLET PO SCH (08:52)
[2020-04-14] MEDS: dexAMETHasone 6 MG TAB (DECADRON) PO SCH (08:52)
[2020-04-14] MEDS: SENNOSIDES 8.6 MG (SENOKOT) TAB PO SCH ×2 (08:52→19:58)
[2020-04-14] MEDS: PANTOPRAZOLE 40 MG (PROTONIX) VIAL IV SCH (08:52)
[2020-04-14] MEDS: DOCUSATE SODIUM 100 MG (COLACE) CAP PO SCH ×2 (08:52→19:57)
[2020-04-14 12:09] VITALS: BP 123/75
--- NOTE | 2020-04-14 14:20 | NUR ---
pt to room 428, with all belongings. report given to Martniez ROCHA.
[2020-04-14 14:50] VITALS: BP 108/59
[2020-04-14 16:18] VITALS: BP 112/66
[2020-04-14 19:41] VITALS: BP 131/60
[2020-04-14 23:20] VITALS: BP 115/56
[2020-04-15] MEDS: RT-ALBUTEROL INHALER HFA (VENTOLIN HFA) 18 GM IH SCH ×5 (02:37→23:21)
[2020-04-15 04:19] VITALS: BP 134/65
[2020-04-15] MEDS: ENOXAPARIN 60 MG/0.6 ML (LOVENOX) SYR SC SCH ×2 (05:14→17:16)
[2020-04-15 05:45] LABS: EOSINOPHILS % (AUTO) 0 % (0-10); MEAN PLATELET VOLUME 12.2 fL (9.0-12.2); MONOCYTES # (AUTO) 0.4 10^3/uL (0.0-1.0)
[2020-04-15 05:47] LABS: BASOPHILS % (AUTO) 0 % (0-10); HEMATOCRIT 36 % (40-54); HEMOGLOBIN 11.3 g/dL (13.3-17.7); LYMPHOCYTES # (AUTO) 1.4 10^3/uL (1.0-4.0); LYMPHOCYTES % (AUTO) 22 % (12-44); MEAN CORPUSCULAR HEMOGLOBIN 27 pg (25-34); MEAN CORPUSCULAR HGB CONC 32 g/dL (32-36); MEAN CORPUSCULAR VOLUME 87 fL (80-99); MONOCYTES % (AUTO) 5 % (0-12); NEUTROPHILS # (AUTO) 4.6 10^3/uL (1.8-7.8); NEUTROPHILS % (AUTO) 71 % (42-75); PLATELET COUNT 103 10^3/uL (130-400); WHITE BLOOD COUNT 6.5 10^3/uL (4.3-11.0)
[2020-04-15 05:52] LABS: ALBUMIN 3.2 GM/DL (3.2-4.5); CHLORIDE 103 MMOL/L (98-107); POTASSIUM 4.2 MMOL/L (3.6-5.0); SODIUM 138 MMOL/L (135-145)
[2020-04-15 05:53] LABS: CALCIUM 8.2 MG/DL (8.5-10.1)
[2020-04-15 05:54] LABS: GLUCOSE 112 MG/DL (70-105); TOTAL PROTEIN 6.8 GM/DL (6.4-8.2)
[2020-04-15 05:55] LABS: CARBON DIOXIDE 25 MMOL/L (21-32)
[2020-04-15 05:56] LABS: BILIRUBIN,TOTAL 0.5 MG/DL (0.1-1.0)
[2020-04-15 05:58] LABS: ALKALINE PHOSPHATASE 85 U/L (40-136); CREATININE SERUM 0.75 MG/DL (0.60-1.30); GFR ESTIMATED > 60
[2020-04-15 05:59] LABS: BUN/CREATININE RATIO 25
[2020-04-15 06:01] LABS: ALANINE AMINOTRANSFERASE 76 U/L (0-55)
[2020-04-15] MEDS: dexAMETHasone 6 MG TAB (DECADRON) PO SCH (06:05)
[2020-04-15 06:34] LABS: SMEAR SCAN COMMENT YES
[2020-04-15] MEDS: SENNOSIDES 8.6 MG (SENOKOT) TAB PO SCH ×2 (07:49→20:07)
[2020-04-15] MEDS: DOCUSATE SODIUM 100 MG (COLACE) CAP PO SCH ×2 (07:49→20:07)
[2020-04-15 08:00] VITALS: BP 130/68
[2020-04-15] MEDS: lisINopril 20 MG (PRINIVIL) TABLET PO SCH (09:02)
[2020-04-15] MEDS: PANTOPRAZOLE 40 MG (PROTONIX) VIAL IV SCH (09:02)
--- NOTE | 2020-04-15 11:21 | Progress Note - Hospitalist ---
Subjective HPI/CC On Admission Date Seen by Provider: Apr 15, 2020 Time Seen by Provider: 12:00 Subjective/Events-last exam Patient much improved Talks about the bipap a lot now No pain reported BM+ Still with chest burning Review of Systems General: Fatigue Pulmonary: Dyspnea Objective Exam Vital Signs Vital Signs Date Time Temp Pulse Resp B/P (MAP) Pulse Ox O2 Delivery O2 Flow Rate FiO2 04/15/20 16:09 36.6 75 20 128/81 (97) 97 Room Air 04/15/20 08:00 04/13/20 08:45 30 Capillary Refill : Less Than 3 Seconds General Appearance: No Apparent Distress, WD/WN, Chronically ill, Obese Respiratory: Chest Non Tender, Lungs Clear, Normal Breath Sounds, No Accessory Muscle Use, No Respiratory Distress Cardiovascular: Regular Rate, Rhythm, No Edema, No Gallop, No JVD, No Murmur, Normal Peripheral Pulses Neurologic/Psychiatric: Alert, Oriented x3, No Motor/Sensory Deficits, Normal Mood/Affect Results/Procedures Lab Laboratory Tests 04/15/20 05:30 Patient resulted labs reviewed. Assessment/Plan Assessment and Plan Assess & Plan/Chief Complaint Assessment: COVID-19 PNA OHS Plan: PT OT if needed Wean down O2 04/14/20: Move to 4th floor DC catheter 04/15/20: Improved status DC soon biPAP set up Assessment per TANYA ChandlerII: Neurologic: Alert and Oriented No sedation Continue PRN lorazepam for anxiety Cardiovascular: BP and HR stable No pressors or inotropes required Respiratory: Acute respiratory failure with ARDS secondary to COVID 19 COVID PNA with severe hypoxia Vapotherm- transition to [place] when feasible Continue scheduled albuterol nebs Continue decadron as ordered Encourage cough and deep breath/IS Prone during wakeful hours Received convalescent plasma therapy Gastrointestinal: Protonix for stress ulcer prophylaxis Encourage appropriate po intake given morbid obesity Monitor for GI bleeding Renal/Genitourinary Bullard present Continue close monitoring kidney function Hematologic: lovenox for DVT prophylaxis Monitor for coagulopathy Trend H and H given the anemia Endocrine: Monitor glucoses daily Tight glucose control given decadron administration Infectious Disease: No abx indicated at present time, course completed Reassess daily need Diagnosis/Problems Diagnosis/Problems (1) Acute respiratory failure due to COVID-19 Clinical Quality Measures DVT/VTE Risk/Contraindication: Risk Factor Score Per Nursin RFS Level Per Nursing on Admit: 3=High ALINA AELJANDRO DO Apr 15, 2020 11:21
[2020-04-15 12:00] VITALS: BP 97/52
[2020-04-15 16:09] VITALS: BP 128/81
[2020-04-15 19:10] VITALS: BP 101/67
[2020-04-16 00:10] VITALS: BP 119/57
[2020-04-16 04:44] VITALS: BP 123/63
[2020-04-16] MEDS: RT-ALBUTEROL INHALER HFA (VENTOLIN HFA) 18 GM IH SCH ×4 (05:20→14:47)
[2020-04-16] MEDS: ENOXAPARIN 60 MG/0.6 ML (LOVENOX) SYR SC SCH (06:09)
[2020-04-16] MEDS: dexAMETHasone 6 MG TAB (DECADRON) PO SCH (06:10)
[2020-04-16 08:00] VITALS: BP 109/67
[2020-04-16] MEDS: PANTOPRAZOLE 40 MG (PROTONIX) VIAL IV SCH (09:37)
[2020-04-16] MEDS: lisINopril 20 MG (PRINIVIL) TABLET PO SCH (09:37)
[2020-04-16] MEDS: DOCUSATE SODIUM 100 MG (COLACE) CAP PO SCH (10:23)
[2020-04-16] MEDS: SENNOSIDES 8.6 MG (SENOKOT) TAB PO SCH (10:23)
[2020-04-16] MEDS ORDERED: ALBU18HF2 IH (11:01)
[2020-04-16] MEDS ORDERED: OXC5T PO (11:01)
[2020-04-16] MEDS ORDERED: LISI-552 PO (11:01)
[2020-04-16] MEDS ORDERED: DEXA6TAB PO (11:01)
--- NOTE | 2020-04-16 11:02 | Discharge Summary ---
Discharge Summary Hospital Course Was the Problem List Reviewed?: Yes Problems/Dx: (1) Acute respiratory failure due to COVID-19 Hospital Course Date of Admission: Apr 08, 2020 at 16:20 Admission Diagnosis : Family Physician/Provider: Adriana Vance MD Date of Discharge: 04/16/20 Discharge Diagnosis: COVID-19 PNA, respiratory failure, DEION Hospital Course: Hospital course: Pt had a lengthy hospital course for nine days after he was transferred from [facility] for Covid-19 respiratory failure. He did not require intubation but did require extensive BiPAP aggressive treatment. He ultimately recovered with Remdesivir and Convalescent plasma along with IV steroids and had a long hospital course. He was ultimately transferred to the floor, felt really good, completed all the Covid-19 treatment protocol and was deemed stable for discharge and did not require oxygen at discharge. He will need a sleep study as an outpatient. Labs and Pending Lab Test: Microbiology 04/09/20 MRSA Screen - Final, Complete MRSA not isolated Home Meds Active Dexamethasone 6 Mg Tablet 6 Mg PO DAILY@0700 Lisinopril 20 Mg Tablet 20 Mg PO DAILY Ventolin Hfa (Albuterol Sulfate) 18 Gm Hfa.aer.ad 0 Gm IH RTQ4HR Reported Vitamin D3 (Cholecalciferol (Vitamin D3)) 25 Mcg Tablet 25 Mcg PO DAILY Multi-Vitamin Daily (Multivitamin) 1 Each Tablet 1 Each PO DAILY Assessment/Pt Instructions PCP Dr Vance 1 week Discharge Planning: <30 minutes discharge planning Discharge Physical Examination Vital Signs Vital Signs Date Time Temp Pulse Resp B/P (MAP) Pulse Ox O2 Delivery O2 Flow Rate FiO2 04/16/20 08:00 35.7 74 20 109/67 (81) 96 Room Air 04/16/20 04:44 25.00 04/13/20 08:45 30 General Appearance: No Apparent Distress, WD/WN, Chronically ill, Obese Respiratory: Chest Non Tender, Lungs Clear, Normal Breath Sounds, No Accessory Muscle Use, No Respiratory Distress Cardiovascular: Regular Rate, Rhythm, No Edema, No Gallop, No JVD, No Murmur, Normal Peripheral Pulses Neurologic/Psychiatric: Alert, Oriented x3, No Motor/Sensory Deficits, Normal Mood/Affect Allergies: Coded Allergies: No Known Drug Allergies (Unverified , 01/27/12) Discharge Summary Date of Admission Apr 08, 2020 at 16:20 Date of Discharge Discharge Date: Apr 16, 2020 Discharge Diagnosis Assessment: COVID-19 PNA OHS Plan: PT OT if needed Wean down O2 04/14/20: Move to 4th floor DC catheter 04/15/20: Improved status DC soon biPAP set up Assessment per TANYA ChandlerII: Neurologic: Alert and Oriented No sedation Continue PRN lorazepam for anxiety Cardiovascular: BP and HR stable No pressors or inotropes required Respiratory: Acute respiratory failure with ARDS secondary to COVID 19 COVID PNA with severe hypoxia Vapotherm- transition to MT when feasible Continue scheduled albuterol nebs Continue decadron as ordered Encourage cough and deep breath/IS Prone during wakeful hours Received convalescent plasma therapy Gastrointestinal: Protonix for stress ulcer prophylaxis Encourage appropriate po intake given morbid obesity Monitor for GI bleeding Renal/Genitourinary Bullard present Continue close monitoring kidney function Hematologic: lovenox for DVT prophylaxis Monitor for coagulopathy Trend H and H given the anemia Endocrine: Monitor glucoses daily Tight glucose control given decadron administration Infectious Disease: No abx indicated at present time, course completed Reassess daily need (1) Acute respiratory failure due to COVID-19 Clinical Quality Measures DVT/VTE Risk/Contraindication: Risk Factor Score Per Nursin RFS Level Per Nursing on Admit: 3=High ALINA ALEJANDRO DO Apr 16, 2020 11:02
--- NOTE | 2020-04-16 11:38 | NUR ---
SPO2 DID NOT DROP BELOW 90% ON ROOM AIR WITH EXERTION. Addendum: 04/16/20 at 1147 by SHERIDAN HIGUERA RT Amended: Links added.
[2020-04-16 12:00] VITALS: BP 146/58
--- NOTE | 2020-04-16 14:23 | NUR ---
"RD ASSESSMENT PMHx: pneumonia; COVID-19; HTN; PT INTERACTION: Note pt is currently in COVID isolation, per chart review. Note all diet information for nutrition follow-up is per AJ Coughlin or per chart review. Madyson states current appetite appears good. Note avg PO intake 100% x3d, per chart review. Madyson states some issues with diarrhea that she is aware of. Note last BM was 04/15, and pt currently on bowel regimen of colace BID, and senna BID, per chart review. ABNORMAL NUTRITION-RELATED LAB VALUES LOW: Ca 8.2; HIGH: BUN 19; glu 112; ALT 76 Est. kcal needs: 5543-7855 kcal | 25-30 kcal/kg IBW, based on IBW of 83.6 kg (184#) Est. Pro needs: 84-100 g Pro | 1.0-1.2 g Pro/kg IBW PES STATEMENT: Given current PO intake, no nutrition diagnosis at this time (NO-1.1). INTERVENTION: Continue with current diet order of Regular diet. Will continue to follow and reassess as pt needs, intake, and status change. Marleny Horner, MS RD LD"
[2020-04-16 16:00] VITALS: BP 146/58
== END 2020-04-16 16:00 | disposition home or self-care (01) | DRG 177 ==
LOC: 4TH 16:20 → ICU 04-09 09:21 → 4TH 04-14 14:18
PROVIDERS: ADMIT Internal Medicine; ATTEND Internal Medicine
PROC: XW033E5 Introduction of Remdesivir Anti-infective into Peripheral Vein, Percutaneous Approach, New Technology Group 5 (ICD-10-PCS; principal; 2020-04-09)
PROC: XW13325 Transfusion of Convalescent Plasma (Nonautologous) into Peripheral Vein, Percutaneous Approach, New Technology Group 5 (ICD-10-PCS; 2020-04-09)
PROC: 5A09557 Assistance with Respiratory Ventilation, Greater than 96 Consecutive Hours, Continuous Positive Airway Pressure (ICD-10-PCS; 2020-04-09)
DX: U07.1 COVID-19 (principal); J80 Acute respiratory distress syndrome; Z68.44 Body mass index [BMI] 60.0-69.9, adult; E66.2 Morbid (severe) obesity with alveolar hypoventilation; D64.9 Anemia, unspecified; F41.9 Anxiety disorder, unspecified
CPT/HCPCS: 36415; 36569; 71045; 76937; 80048; 80053; 81000; 82728; 82805; 82962; 83615; 83735; 83880; 84100; 84145; 84484; 85025; 85379; 86850; 86900; 86901; 87081; 93005; 94640; 94660; 94760; 94761

== ENCOUNTER 2022-10-02 05:39 | Outpatient (CLI) | payer OTHER ==
[~2022-10-02] VITALS: Ht 185.5 cm; Wt 255.5 kg
[~2022-10-02 05:39] MED LIST changes: +ALBU18HF2 IH; +CHOL-34 PO; +DEXA6TAB PO; +LISI20TA26 PO; +MULT-974 PO; +OXC5T PO
[2022-10-02] MEDS ORDERED: IBUP-2185 PO (15:29)
[2022-10-02] MEDS ORDERED: CYAN50009 PO (15:29)
[2022-10-02] MEDS ORDERED: VITA-246 PO (15:29)
[2022-10-02] MEDS ORDERED: ZINC50TA51 PO (15:29)
== END 2022-10-02 15:38 | disposition home or self-care (01) ==
LOC: PREOP 05:39
PROVIDERS: ATTEND Specialist
DX: Z01.818 Encounter for other preprocedural examination (principal); H25.12 Age-related nuclear cataract, left eye

== ENCOUNTER 2022-10-10 07:05 | Day surgery (SDC) | payer MEDICAID, OTHER ==
[~2022-10-10] VITALS: Ht 185.5 cm; Wt 255.5 kg
[~2022-10-10 07:05] MED LIST changes: +CYAN50009 PO; +IBUP-2185 PO; +VITA-246 PO; +ZINC50TA51 PO
[2022-10-10] MEDS ORDERED: MIDAZOLAM 2 MG/2 ML (VERSED) VIAL ONE (07:24)
[2022-10-10] MEDS ORDERED: POVIDONE (BETADINE) OPHTH SOLN 5% 30 ML OP ONE (07:30)
[2022-10-10] MEDS ORDERED: TIMOLOL 0.5% (CATARACTS) 0.3 ML BTL OU PRN (07:30)
[2022-10-10] MEDS ORDERED: MOXIFLOXACIN OPHTH SOLN 5 MG/ML 0.3 ML SYRINGE OP ONE (07:30)
[2022-10-10] MEDS: TETRACAINE 0.5% OPHTH SOLN 4 ML BTL (SINGLE DOSE ONLY) OU PRN ×4 (07:33→07:55)
[2022-10-10 07:40] VITALS: BP 169/97
[2022-10-10] MEDS: PHENYLEPHRINE 10% OPHTH (NEO-SYN) 5 ML BTL OU SCH ×3 (07:45→07:55)
[2022-10-10] MEDS: TROPICAMIDE 1% OPH SOLN (MYDRIACYL) 15 ML BTL OP SCH ×3 (07:45→07:56)
--- NOTE | 2022-10-10 08:15 | Ophthalmologist Pre-Op Note ---
Pre-Operative Progress Note H&P Reviewed The H&P was reviewed, patient examined and no changes noted. Date H&P Reviewed: October 10, 2022 Time H&P Reviewed: 08:15 Pre-Op Dx Cataract, Left Eye THEA HAYES MD October 10, 2022 08:15
[2022-10-10 08:38] VITALS: BP 142/61
--- NOTE | 2022-10-10 08:39 | Ophthalmology Operative Report ---
Cataract removal/placement IOL PREOPERATIVE DIAGNOSIS: Cataract Left Eye POSTOPERATIVE DIAGNOSIS: Cataract Left Eye PROCEDURE: Cataract removal and placement of posterior chamber implant, left eye SURGEON: Demarcus Hayes ANESTHESIA: Topical with sedation COMPLICATIONS: None ESTIMATED BLOOD LOSS: Minimal DESCRIPTION OF PROCEDURE: After proper informed consent was obtained, the patient, a 47 male, was taken to the Operating Room and the left eye was anesthetized with tetracaine. The left eye was then prepped and draped in the usual manner. A wire lid speculum was placed. A paracentesis was made at the left hand position. Preservative free lidocaine was injected into the anterior chamber followed by viscoelastic. A clear corneal incision was made in the temporal position. A capsulorrhexis was preformed and the central nuclear and cortical material were removed. The posterior capsule was polished and an Shilo 19.0 AU00T0 was placed into the capsular bag. The residual viscoelastic was aspirated and balanced saline solution was injected into the anterior chamber. Moxifloxacin was injected into the anterior chamber. The wound was checked and found to be water tight. The patient tolerated the procedure well without complications. DEMARCUS HAYES MD October 10, 2022 08:39
[2022-10-10] MEDS ORDERED: acetaZOLAMIDE ER 500 MG CAP (DIAMOX SEQUELS) PO ONE (10:15)
--- NOTE | 2022-10-10 12:21 | Anesthesia-General Post-Op ---
MAC Patient Condition Mental Status/LOC: Same as Preop Cardiovascular: Satisfactory Nausea/Vomiting: Absent Respiratory: Satisfactory Pain: Controlled Complications: Absent Post Op Complications Complications None Follow Up Care/Instructions Patient Instructions None needed. Anesthesiology Discharge Order Discharge Order Patient is doing well, no complaints, stable vital signs, no apparent adverse anesthesia problems. No complications reported per nursing. RODRÍGUEZ MARQUEZ CRNA October 10, 2022 12:21
== END 2022-10-10 08:41 ==
LOC: SDC 07:05
PROVIDERS: ATTEND Specialist
DX: H25.9 Unspecified age-related cataract (principal); G47.33 Obstructive sleep apnea (adult) (pediatric); Z91.199 Patient's noncompliance with other medical treatment and regimen due to unspecified reason

== ENCOUNTER 2022-12-24 07:30 | Outpatient (CLI) | payer OTHER ==
[~2022-12-24] VITALS: Ht 182.9 cm; Wt 255.5 kg
== END 2022-12-25 10:37 | disposition home or self-care (01) ==
LOC: PREOP 07:30
PROVIDERS: ATTEND Specialist
DX: Z01.818 Encounter for other preprocedural examination (principal)

== ENCOUNTER 2022-12-26 07:10 | Day surgery (SDC) | payer OTHER ==
[~2022-12-26] VITALS: Ht 185 cm; Wt 255.5 kg
[2022-12-26] MEDS ORDERED: MOXIFLOXACIN OPHTH SOLN 5 MG/ML 0.3 ML SYRINGE OP ONE (07:30)
[2022-12-26] MEDS ORDERED: POVIDONE (BETADINE) OPHTH SOLN 5% 30 ML OP ONE (07:30)
[2022-12-26] MEDS ORDERED: LIDOCAINE PF 1% 2 ML VIAL IR PRN (07:30)
[2022-12-26] MEDS ORDERED: TIMOLOL 0.5% (CATARACTS) 0.3 ML BTL OU PRN (07:30)
[2022-12-26] MEDS: TETRACAINE 0.5% OPHTH SOLN 4 ML BTL (SINGLE DOSE ONLY) OU PRN ×4 (07:40→07:52)
[2022-12-26] MEDS: PHENYLEPHRINE 10% OPHTH (NEO-SYN) 5 ML BTL OU SCH ×3 (07:45→08:00)
[2022-12-26] MEDS: TROPICAMIDE 1% OPH SOLN (MYDRIACYL) 15 ML BTL OP SCH ×3 (07:45→07:55)
[2022-12-26 07:46] VITALS: BP 134/69
--- NOTE | 2022-12-26 08:24 | Ophthalmologist Pre-Op Note ---
Pre-Operative Progress Note H&P Reviewed The H&P was reviewed, patient examined and no changes noted. Date H&P Reviewed: Dec 26, 2022 Time H&P Reviewed: 08:24 Pre-Op Dx Cataract, Right Eye THEA HAYES MD Dec 26, 2022 08:24
[2022-12-26] MEDS ORDERED: MIDAZOLAM 2 MG/2 ML (VERSED) VIAL ONE (08:27)
--- NOTE | 2022-12-26 08:44 | Ophthalmology Operative Report ---
Cataract removal/placement IOL PREOPERATIVE DIAGNOSIS: Cataract Right Eye POSTOPERATIVE DIAGNOSIS: Cataract Right Eye PROCEDURE: Cataract removal and placement of posterior chamber implant, right eye SURGEON: Demarcus Hayes ANESTHESIA: Topical with sedation COMPLICATIONS: None ESTIMATED BLOOD LOSS: Minimal DESCRIPTION OF PROCEDURE: After proper informed consent was obtained, the patient, a 47 male, was taken to the Operating Room and the right eye was anesthetized with tetracaine. The right eye was then prepped and draped in the usual manner. A wire lid speculum was placed. A paracentesis was made at the left hand position. Preservative free lidocaine was injected into the anterior chamber followed by viscoelastic. A clear corneal incision was made in the temporal position. A capsulorrhexis was preformed and the central nuclear and cortical material were removed. The posterior capsule was polished and Shilo 19.5 AU00T0 IOL was placed into the capsular bag. The residual viscoelastic was aspirated and balanced saline solution was injected into the anterior chamber. Moxifloxacin was injected into the anterior chamber. The wound was checked and found to be water tight. The patient tolerated the procedure well without complications. DEMARCUS HAYES MD Dec 26, 2022 08:44
[2022-12-26 08:54] VITALS: BP 152/77
--- NOTE | 2022-12-26 13:51 | Anesthesia-General Post-Op ---
MAC Patient Condition Mental Status/LOC: Same as Preop Cardiovascular: Satisfactory Nausea/Vomiting: Absent Respiratory: Satisfactory Pain: Controlled Complications: Absent Post Op Complications Complications None Follow Up Care/Instructions Patient Instructions None needed. Anesthesiology Discharge Order Discharge Order Patient is doing well, no complaints, stable vital signs, no apparent adverse anesthesia problems. No complications reported per nursing. SIENA ESTEBAN CRNA Dec 26, 2022 13:51
== END 2022-12-26 08:53 | disposition home or self-care (01) ==
LOC: SDC 07:10
PROVIDERS: ATTEND Specialist
DX: H25.9 Unspecified age-related cataract (principal); Z87.891 Personal history of nicotine dependence; E66.01 Morbid (severe) obesity due to excess calories; Z68.45 Body mass index [BMI] 70 or greater, adult